=== PATIENT | female | born 1990 | race African-American/Black ===

== ENCOUNTER 2018-11-16 04:59 | Emergency (ER) | payer MEDICAID ==
[~2018-11-16] VITALS: Ht 162.6 cm; Wt 68.0 kg
[2018-11-16 05:00] VITALS: BP 104/69
[2018-11-16] MEDS ORDERED: ALBUTEROL SULFATE 2.5 MG/3 ML ONE ×2 (05:13)
--- NOTE | 2018-11-16 05:13 | NUR ---
FIRST CONTACT WITH PT. PT PRESENTS C/O ASTHMA EXACERBATION SINCE YESTERDAY. STATES SHE IS OUT OF HER INHALER. PT IS AWAKE/ALERT AND IN MILD DISTRESS. VSS. SKIN IS NFE, MMM, BRISK CAP REFILL. INSPIRATORY AND EXPIRATORY WHEEZES HEARD. RESPS EVEN AND UNLABORED. PT DENIES ANY OTHER SYMPTOMS. BP/SPO2 MONITORS IN PLACE. CALL LIGHT WITHIN REACH.
[2018-11-16] MEDS ORDERED: ALBUTEROL SULFATE 2.5 MG/3 ML NPPB PRN (05:30)
--- NOTE | 2018-11-16 05:34 | NUR ---
PT MEDICATED PER EMAR. PT TOELRATED WELL.
[2018-11-16] MEDS: ALBUTEROL SULFATE 2.5 MG/3 ML NPPB SCH (05:43)
--- NOTE | 2018-11-16 06:03 | NUR ---
Patient given discharge instructions and they have confirmed that they understand the instructions. Patient ambulatory with steady gait.
[2018-11-21] MEDS ORDERED: ALBUTEROL SULFATE 2.5 MG/3 ML NPPB PRN (08:00)
== END 2018-11-16 06:03 | disposition home or self-care (01) ==
LOC: ED 05:40
DX: J45.41 Moderate persistent asthma with (acute) exacerbation (principal)
CPT/HCPCS: 93005; 94640; 99283; J7512; J7613

== ENCOUNTER 2019-06-09 22:48 | Emergency (ER) | payer SELFPAY ==
[~2019-06-09] VITALS: Ht 160 cm; Wt 60.9 kg
[2019-06-09 22:54] VITALS: BP 114/72
[2019-06-09] MEDS ORDERED: HYDROcodone/APAP 5/325 TABLET ONE (23:19)
[2019-06-09] MEDS ORDERED: HYDROcodone/APAP 5/325 TABLET PO ONE (23:30)
== END 2019-06-09 23:27 | disposition home or self-care (01) ==
LOC: ED 23:20
DX: K04.7 Periapical abscess without sinus (principal); K02.7 Dental root caries
CPT/HCPCS: 99283

== ENCOUNTER 2019-08-29 17:45 | Emergency (ER) | payer MEDICAID ==
[~2019-08-29] VITALS: Ht 162.6 cm; Wt 58.4 kg
--- NOTE | 2019-08-29 18:16 | NUR ---
PATIENT TO ROOM FROM LOBBY
[2019-08-29 18:31] VITALS: BP 113/70
--- NOTE | 2019-08-29 18:36 | NUR ---
THIS IS A 29 YO FEMALE COMING IN FOR INTERMITTENT SOB FOR THE LAST WEEK WHILE LAYING DOWN AND WITH ACTIVITY AT WORK. PATIENT HAS HX OF ASTHMA, USES INHALER AT HOME BUT IS CURRENTLY OUT. PATIENT STATES SHE TOOK HOT SHOWER AND THE STEAM HELPED EASE THE SOB. LUNG SOUNDS CLEAR THROUGHOUT, SPO2 AT 98% ON RA. SPO2 AND BP MONITORING IN PLACE, ALL VSS, NAD AT THIS TIME. CALL LIGHT IN REACH
--- NOTE | 2019-08-29 19:12 | NUR ---
Patient/Caregiver given discharge instructions and they have confirmed that they understand the instructions. Patient ambulatory with steady gait.
== END 2019-08-29 19:13 | disposition home or self-care (01) ==
LOC: ED 18:00
DX: J45.31 Mild persistent asthma with (acute) exacerbation (principal); R06.02 Shortness of breath
CPT/HCPCS: 99283

== ENCOUNTER 2019-10-28 22:30 | Emergency (ER) | payer MEDICAID ==
[~2019-10-28] VITALS: Ht 162.6 cm; Wt 56.9 kg
[2019-10-28 22:31] VITALS: BP 123/67
== END 2019-10-28 23:07 | disposition home or self-care (01) ==
LOC: ED 22:47
DX: J45.909 Unspecified asthma, uncomplicated (principal); Z76.0 Encounter for issue of repeat prescription
CPT/HCPCS: 93005; 99283

== ENCOUNTER 2019-11-11 21:39 | Emergency (ER) | payer MEDICAID ==
[~2019-11-11] VITALS: Ht 162.6 cm; Wt 56.2 kg
--- NOTE | 2019-11-11 22:00 | NUR ---
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
--- NOTE | 2019-11-11 22:11 | NUR ---
PT. TO ROOM FROM LOBBY AT THIS TIME.
--- NOTE | 2019-11-11 22:24 | NUR ---
this tech did ekg
[2019-11-11] MEDS ORDERED: SODIUM CHLORIDE FLUSH 10ML SYR IVF ONE (22:30)
--- NOTE | 2019-11-11 22:52 | NUR ---
Pt c/o lower abd pain and nausea when standing. States no symptoms when laying down. IV access obtained and labs drawn and sent. Pt provided clean catch UA--ok to send instead of straight cath per NIGEL Smith. Call light in reach. Pt aware of POC.
[2019-11-11 23:00] LABS: MICROSCOPIC AUTO
[2019-11-11 23:05] LABS: MEAN CORPUSCULAR HEMOGLOBIN 27.5 pg (27.0-34.8); MEAN CORPUSCULAR VOLUME 85.9 fL (80-100); MEAN PLATELET VOLUME 7.2 fL (7.4-10.4); PLATELET COUNT 313 x10^3/uL (130-400); RED BLOOD COUNT 4.29 x10^6/uL (3.82-5.3); RED CELL DISTRIBUTION WIDTH 13.9 % (9.6-15.2)
[2019-11-11 23:10] LABS: ALBUMIN 3.9 g/dL (3.4-5.0); ANION GAP 4 mmol/L (5-15); CHLORIDE 110 mmol/L (98-107); CREATININE 1.22 mg/dL (0.55-1.02)
[2019-11-11 23:47] LABS: BASOPHILS # (AUTO) 0.02 x10^3/uL (0-0.1); BASOPHILS % (AUTO) 0 % (0-1); EOSINOPHILS # (AUTO) 0.07 x10^3/uL (0-0.4); EOSINOPHILS % (AUTO) 2 % (1-7); LYMPHOCYTES # (AUTO) 1.31 x10^3/uL (1-3.4); LYMPHOCYTES % (AUTO) 29 % (22-44); MD SCAN; MONOCYTES # (AUTO) 0.39 x10^3/uL (0.2-0.8); MONOCYTES % (AUTO) 9 % (2-9); NEUTROPHILS # (AUTO) 2.76 x10^3/uL (1.8-6.8); NEUTROPHILS % (AUTO) 61 % (42-75)
--- NOTE | 2019-11-12 00:09 | NUR ---
PT RESTING WITH NO NEEDS EXPRESSED. AWAITING US. CALL LIGHT IN REACH.
--- NOTE | 2019-11-12 00:19 | NUR ---
Pt to US via [facility]ie.
--- NOTE | 2019-11-12 01:20 | NUR ---
Report to David PLEITEZ
--- NOTE | 2019-11-12 01:29 | NUR ---
received report from PRICILLA Webber. re-evaluation done. patient discharged with prescription and instruction. verbalized understanding.
[2019-11-12 01:31] VITALS: BP 129/78
== END 2019-11-12 01:33 | disposition home or self-care (01) ==
LOC: ED 22:53
DX: N83.292 Other ovarian cyst, left side (principal); R10.32 Left lower quadrant pain; R42 Dizziness and giddiness; J45.909 Unspecified asthma, uncomplicated
CPT/HCPCS: 36415; 76830; 80048; 81001; 82040; 84703; 85025; 93005; 99285

== ENCOUNTER 2020-03-01 11:56 | Emergency (ER) | payer MEDICAID ==
[~2020-03-01] VITALS: Ht 157.5 cm; Wt 57.3 kg
[2020-03-01 12:00] VITALS: BP 132/81
[2020-03-01 12:28] LABS: MICROSCOPIC NOT IND
[2020-03-01 13:05] LABS: BASOPHILS % (AUTO) 1 % (0-1); EOSINOPHILS % (AUTO) 4 % (1-7); LYMPHOCYTES % (AUTO) 33 % (22-44); MEAN CORPUSCULAR HEMOGLOBIN 28.5 pg (27.0-34.8); MEAN PLATELET VOLUME 7.2 fL (7.4-10.4); MONOCYTES % (AUTO) 7 % (2-9); NEUTROPHILS % (AUTO) 55 % (42-75); PLATELET COUNT 284 x10^3/uL (130-400); RED BLOOD COUNT 4.14 x10^6/uL (3.82-5.3); RED CELL DISTRIBUTION WIDTH 14.2 % (9.6-15.2)
[2020-03-01 13:12] LABS: ALBUMIN 3.6 g/dL (3.4-5.0); ANION GAP 5 mmol/L (5-15); CALCIUM 8.5 mg/dL (8.5-10.1); CHLORIDE 110 mmol/L (98-107); CREATININE 0.95 mg/dL (0.55-1.02); MD NO
--- NOTE | 2020-03-01 14:05 | NUR ---
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
== END 2020-03-01 15:28 | disposition home or self-care (01) ==
LOC: ED 15:10
DX: N83.12 Corpus luteum cyst of left ovary (principal); R10.32 Left lower quadrant pain
CPT/HCPCS: 36415; 76830; 80048; 81003; 82040; 84703; 85025; 99284

== ENCOUNTER 2020-11-05 09:00 | Emergency (ER) | payer MEDICAID ==
[~2020-11-05] VITALS: Ht 160 cm; Wt 56.4 kg
--- NOTE | 2020-11-05 09:48 | NUR ---
BILAT LOW ABD PAIN x 5 days with diarrhea. Also started menstrual cycle today and bleeding heavilly. Appears well/vss Updated on estimated poc
[2020-11-05] MEDS ORDERED: IBUPROFEN 800 MG TABLET PO PRN (10:30)
[2020-11-05] MEDS ORDERED: KETOROLAC 30 MG/1 ML IM PRN (10:30)
[2020-11-05 10:34] LABS: MICROSCOPIC INDICATED
--- NOTE | 2020-11-05 10:36 | NUR ---
straight nydia bethea waled to lab lab at bedside for specimens to medicate shortly
[2020-11-05 10:44] LABS: BASOPHILS % (AUTO) 1 % (0-1); EOSINOPHILS % (AUTO) 5 % (1-7); LYMPHOCYTES % (AUTO) 39 % (22-44); MEAN CORPUSCULAR HEMOGLOBIN 28.5 pg (27.0-34.8); MEAN CORPUSCULAR HGB CONC 32.9 g/dL (32.4-35.8); MONOCYTES % (AUTO) 9 % (2-9); NEUTROPHILS % (AUTO) 47 % (42-75); PLATELET COUNT 284 x10^3/uL (130-400); RED BLOOD COUNT 4.48 x10^6/uL (3.82-5.3); RED CELL DISTRIBUTION WIDTH 13.5 % (9.6-15.2)
[2020-11-05 10:54] LABS: ALANINE AMINOTRANSFERASE 25 U/L (12-78); ALBUMIN 3.8 g/dL (3.4-5.0); CALCIUM 8.8 mg/dL (8.5-10.1); CREATININE 0.99 mg/dL (0.55-1.02)
[2020-11-05 10:58] LABS: ALKALINE PHOSPHATASE 64 U/L (45-117); BILIRUBIN,TOTAL 1.5 mg/dL (0.2-1.0); TOTAL PROTEIN 7.7 g/dL (6.4-8.2)
[2020-11-05 11:01] LABS: CHLORIDE 107 mmol/L (98-107)
[2020-11-05 11:03] LABS: ANION GAP 3 mmol/L (5-15)
[2020-11-05] MEDS ORDERED: IBUPROFEN 600 MG TABLET ONE (11:17)
[2020-11-05] MEDS ORDERED: KETOROLAC 30 MG/1 ML ONE (11:17)
[2020-11-05 11:31] VITALS: BP 97/62
--- NOTE | 2020-11-05 11:31 | NUR ---
Discharged despirte recent medication as patient has tolerated toradol many times before. teach back successful on testing and home poc
== END 2020-11-05 11:33 | disposition home or self-care (01) ==
LOC: ED 09:27
DX: R10.31 Right lower quadrant pain (principal); R10.32 Left lower quadrant pain; R19.7 Diarrhea, unspecified
CPT/HCPCS: 36415; 76830; 80053; 81001; 84703; 85025; 96372; 99284; J1885

== ENCOUNTER 2020-11-30 10:24 | Emergency (ER) | payer MEDICAID ==
[~2020-11-30] VITALS: Ht 160 cm; Wt 57.7 kg
[2020-11-30 10:28] VITALS: BP 107/66
--- NOTE | 2020-11-30 10:59 | NUR ---
manager night: Pt ambulatory to room from lobby at this time.
== END 2020-11-30 11:51 | disposition home or self-care (01) ==
LOC: ED 10:47
DX: J06.9 Acute upper respiratory infection, unspecified (principal); Z20.822 Contact with and (suspected) exposure to COVID-19; R94.31 Abnormal electrocardiogram [ECG] [EKG]; J45.909 Unspecified asthma, uncomplicated
CPT/HCPCS: 93005; 99284; U0003; U0005; 99285